=== PATIENT | male | born 1975 | race Caucasian/White ===

== ENCOUNTER 2021-11-16 08:56 | Emergency (ER) | payer MEDICAID ==
[~2021-11-16] VITALS: Ht 162.6 cm; Wt 66.0 kg
[2021-11-16 08:58] VITALS: BP 126/72
[2021-11-16 09:48] LABS: HEMATOCRIT. 42.4 % (42.0-52.0); MEAN CORPUSCULAR HEMOGLOBIN 27.8 pg (28.0-32.0); MEAN CORPUSCULAR VOLUME 84.1 fL (80.0-94.0); MEAN PLATELET VOLUME 7.3 fl (7.4-10.4); PLATELET 373 x1000/uL (130-400); RED BLOOD CELL COUNT 5.04 mill/uL (4.7-6.1); RED CELL DISTRIBUTION WIDTH 14.7 % (11.6-14.6)
[2021-11-16 09:56] LABS: CHLORIDE 104 mEq/L (98-107)
[2021-11-16 10:11] LABS: PLATELET ESTIMATE NORMAL
[2021-11-16] MEDS ORDERED: CEPH500T MT (10:55)
[2021-11-16] MEDS ORDERED: TETR-65 MT (10:55)
== END 2021-11-16 12:02 | disposition home or self-care (01) ==
LOC: ER 08:56
DX: I87.2 Venous insufficiency (chronic) (peripheral) (principal)
CPT/HCPCS: 36415; 80053; 85025; 93970; 99284